=== PATIENT | female | born 1985 | race African-American/Black ===

== ENCOUNTER 2016-10-02 13:27 | Emergency (ER) | payer SELFPAY ==
--- NOTE | 2016-10-02 13:40 | ER Document Report ---
ED Medical Screen (RME) - General Chief Complaint: Post Surgical Bleeding Stated Complaint: VAGINAL BLEEDING/PASSING CLOTS Mode of Arrival: Ambulatory Information source: Patient Notes: Patient recently had an ectopic with laparoscopic salpingectomy 2 days ago. Patient states she started to have heavy vaginal bleeding today with clots. Patient does complain of some nausea but denies any fever. Patient complains of lower abdominal tenderness. TRAVEL OUTSIDE OF THE [place] IN LAST 30 DAYS: No - Related Data Allergies/Adverse Reactions: latex [Latex] Allergy (Verified 09/29/16 06:24) Past Medical History Past Surgical History: Reports: Hx Section - 2, Hx Tubal Ligation - and reversal attempt unable to reverse - Immunizations Immunizations up to date: Yes Hx Diphtheria, Pertussis, Tetanus Vaccination: Yes Physical Exam - Vital signs Vitals: Temp Pulse Resp BP Pulse Ox 98.1 F 58 L 18 142/92 H 99 10/02/16 13:31 10/02/16 13:31 10/02/16 13:31 10/02/16 13:31 10/02/16 13:31 - Abdominal Tenderness: Tender - Lower pelvic Course - Vital Signs Vital signs: Temp Pulse Resp BP Pulse Ox 98.1 F 58 L 18 142/92 H 99 10/02/16 13:31 10/02/16 13:31 10/02/16 13:31 10/02/16 13:31 10/02/16 13:31
[2016-10-02 13:57] LABS: ABSOLUTE LYMPHOCYTES (AUTO) 2.7 10^3/uL (0.5-4.7); ABSOLUTE MONOCYTES (AUTO) 0.5 10^3/uL (0.1-1.4); ABSOLUTE NEUT (AUTO) 4.6 10^3/uL (1.7-8.2); BASOPHILS % (AUTO) 0.5 % (0-2); EOSINOPHILS % (AUTO) 0.1 % (0-6); HEMATOCRIT 36.9 % (36.0-47.0); HEMOGLOBIN 12.4 g/dL (12.0-15.5); HGB HCT DIFFERENCE 0.3; LYMPHOCYTES % (AUTO) 33.7 % (13-45); MEAN CORPUSCULAR HEMOGLOBIN 29.1 pg (27.0-33.4); MEAN CORPUSCULAR HGB CONC 33.5 g/dL (32.0-36.0); MEAN CORPUSCULAR VOLUME 87 fl (80-97); MONOCYTES % (AUTO) 6.8 % (3-13); RED BLOOD COUNT 4.25 10^6/uL (3.72-5.28); RED CELL DISTRIBUTION WIDTH 14.3 % (11.5-14.0); SEGMENTED NEUTROPHILS % (AUTO) 58.9 % (42-78); WHITE BLOOD COUNT 7.9 10^3/uL (4.0-10.5)
[2016-10-02 14:14] LABS: ALANINE AMINOTRANSFERASE 36 U/L (9-52); ALBUMIN 4.8 g/dL (3.5-5.0); ALKALINE PHOSPHATASE 58 U/L (38-126); ANION GAP 13 (5-19); ASPARTATE AMINO TRANSFERASE 27 U/L (14-36); BILIRUBIN,TOTAL 0.5 mg/dL (0.2-1.3); BLOOD UREA NITROGEN 9 mg/dL (7-20); CALCIUM 9.9 mg/dL (8.4-10.2); CARBON DIOXIDE 24 mmol/L (22-30); CHLORIDE 104 mmol/L (98-107); CREATININE RESULT 0.76 mg/dL (0.52-1.25); GLUCOSE 89 mg/dL (75-110); POTASSIUM 4.4 mmol/L (3.6-5.0); SODIUM 141.4 mmol/L (137-145); TOTAL PROTEIN 8.2 g/dL (6.3-8.2)
[2016-10-02] MEDS ORDERED: IBUPROFEN 800 MG TABLET PO ONE (17:49)
--- NOTE | 2016-10-02 17:55 | ER Document Report ---
ED General - General Chief Complaint: Vaginal Bleeding Stated Complaint: VAGINAL BLEEDING/PASSING CLOTS Mode of Arrival: Ambulatory Information source: Patient Notes: Patient presents to the emergency department with reports of heavy bleeding and clots since this morning. She reports she had surgery for an ectopic on 09/29/16. Patient reports she has abdominal cramping but denies fever vomiting but does complain of nausea and some diarrhea. She reports she took Advil for the pain last night nothing today. She accepts Motrin at this time declines nausea medicine. Patient is wondering if she is still . TRAVEL OUTSIDE OF THE [place] IN LAST 30 DAYS: No - HPI Onset: This morning Onset/Duration: Persistent Quality of pain: Cramping Severity: Severe Pain Level: 4 Associated symptoms: Diarrhea, Nausea Exacerbated by: Denies Relieved by: Denies Similar symptoms previously: Yes Recently seen / treated by doctor: Yes - Related Data Allergies/Adverse Reactions: latex [Latex] Allergy (Verified 09/29/16 06:24) Past Medical History - General Information source: Patient Last Menstrual Period: 08/15/16 - Social History Smoking Status: Never Smoker Cigarette use (# per day): No Chew tobacco use (# tins/day): No Frequency of alcohol use: None Drug Abuse: None Lives with: Family Family History: Arthritis, CAD, DM, Hyperlipidemia, Hypertension Patient has suicidal ideation: No Patient has homicidal ideation: No - Medical History Medical History: Negative Past Surgical History: Reports: Hx Section - 2, Hx Tubal Ligation - Immunizations Immunizations up to date: Yes Hx Diphtheria, Pertussis, Tetanus Vaccination: Yes Review of Systems - Review of Systems Notes: Review HPI for review of systems., All other systems negative Physical Exam - Vital signs Vitals: Temp Pulse Resp BP Pulse Ox 98.1 F 58 L 18 142/92 H 99 10/02/16 13:31 10/02/16 13:31 10/02/16 13:31 10/02/16 13:31 10/02/16 13:31 - Notes Notes: PHYSICAL EXAMINATION: GENERAL: Well-appearing and in no acute distress HEAD: Atraumatic, normocephalic. EYES: Pupils equal round extraocular movements intact, sclera anicteric, conjunctiva are normal. ENT: nares patent, Moist mucous membranes. NECK: Normal range of motion, supple without lymphadenopathy LUNGS: CTAB and equal. No wheezes rales or rhonchi. HEART: Regular rate and rhythm without murmurs ABDOMEN: Soft, c/o tenderness periumbilical No guarding, no rebound EXTREMITIES: Normal range of motion NEUROLOGICAL: Cranial nerves grossly intact. PSYCH: Normal mood, normal affect. SKIN: Warm, Dry, normal turgor, Course - Re-evaluation Re-evalutation: 10/02/16 18:[address] Dudley via the hospital stuffing machine operator. We discussed the patient c/o , patient labs. She reports that this is normal for the patient. I informed her I did not do a pelvic exam. She advises patient be discharged and follow- up with [facility] as scheduled. Patient has a follow-up visit with Dr. Mariscal on Monday. 10/02/16 18:14 Patient instructed on conversation with Dr. Dudley. Patient is still wondering if she is . I advised patient of her hCG level. I also advised patient to monitor the bleeding and return if she has heavy bleeding. She verbalized understanding to all instructions - Vital Signs Vital signs: Temp Pulse Resp BP Pulse Ox 98.1 F 58 L 18 142/92 H 99 10/02/16 13:31 10/02/16 13:31 10/02/16 13:31 10/02/16 13:31 10/02/16 13:31 - Laboratory Result Diagrams: 10/02/16 13:45 10/02/16 13:45 Laboratory results interpreted by me: 10/02/16 10/02/16 13:45 13:45 RDW 14.3 H Beta HCG, Quant 57.90 H Discharge - Discharge Clinical Impression: vaginal bleeding, elevated blood pressure Condition: Stable Disposition: HOME, SELF-CARE Additional Instructions: *You have been evaluated for vaginal bleeding post bilateral salpingectomy *Dr. Devi reports what you are experiencing is normal. *Take ibuprofen or advil as indicated for cramping *Follow up with Dr Mariscal as scheduled *Monitor your bleeding. Return to the ED if you are bleeding thru one full sized kotex per hour *Return to ED for worsening condition, changes, needs Forms: Elevated Blood Pressure
[2016-10-02 18:22] VITALS: BP 130/93
== END 2016-10-02 18:22 | disposition home or self-care (01) ==
LOC: ER 13:27
DX: Z48.816 Encounter for surgical aftercare following surgery on the genitourinary system (principal); R11.0 Nausea; R19.7 Diarrhea, unspecified; R03.0 Elevated blood-pressure reading, without diagnosis of hypertension; Z98.890 Other specified postprocedural states; Z91.040 Latex allergy status
CPT/HCPCS: 36415; 80053; 84702; 85025; 99284

== ENCOUNTER 2017-05-18 16:42 | Emergency (ER) | payer OTHER, MEDICAID ==
[2017-05-18] MEDS ORDERED: IBUPROFEN 800 MG TABLET PO ONE (18:42)
[2017-05-18] MEDS ORDERED: CYCLOBENZAPRINE HCL 10 MG TABLET PO ONE (18:43)
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
[2017-05-18 20:18] VITALS: BP 124/77
== END 2017-05-18 20:16 | disposition home or self-care (01) ==
LOC: ER 16:42
DX: S16.1XXA Strain of muscle, fascia and tendon at neck level, initial encounter (principal); V43.52XA Car driver injured in collision with other type car in traffic accident, initial encounter; M54.2 Cervicalgia; M54.5 Low back pain; Z91.040 Latex allergy status
CPT/HCPCS: 99283